=== PATIENT | female | born 1995 | race American Indian/Alaskan Native ===

== ENCOUNTER 2019-02-16 12:49 | Emergency (ER) | payer SELFPAY ==
[2019-02-16 12:56] VITALS: BP 139/87
--- NOTE | 2019-02-16 13:20 | Emergency Department Report ---
Chief Complaint: Upper Respiratory Infection Stated Complaint: FLU LIKE SYMPTOMS Time Seen by Provider: 02/16/19 13:15 - HPI History of Present Illness: 23 y o f presents with uri sx x 1 week no other cc. she denies f/c/n/v/cp/sob - ROS Review of Systems: as noted in HPI - Exam Vital Signs: Vital Signs 02/16/19 12:53 Temperature 97.8 F Pulse Rate 94 H Respiratory 18 Rate Blood Pressure 139/87 O2 Sat by Pulse 100 Oximetry Physical Exam: Gen: AAO x 3 MSE screening note: Focused history and physical exam performed. Due to findings the following was ordered: ED Medical Decision Making - Medical Decision Making 23 y o f presents with URI sx with normal vital signs taking otc meds with relief discussed follow up with pcp and continue care no acute distress, vss ED Disposition for MSE Clinical Impression: Upper respiratory infection Disposition: DC- TO HOME OR SELFCARE Is pt being admited?: No Does the pt Need Aspirin: No Condition: Stable Instructions: Viral Syndrome (ED) Additional Instructions: follow up [facility] Referrals: [facility] [Outside] - 3-5 Days [facility] [Outside] - 3-5 Days [facility] [Outside] - 3-5 Days Forms: Work/School Release Form(ED) Time of Disposition: 13:16
== END 2019-02-16 13:18 | disposition home or self-care (01) ==
LOC: ED 12:49
DX: J06.9 Acute upper respiratory infection, unspecified (principal)
CPT/HCPCS: 99281